=== PATIENT | male | born 1970 | race African-American/Black ===

== ENCOUNTER 2016-11-21 23:00 | Inpatient (IN) | payer BC ==
--- NOTE | ~2016-11-21 | HP ---
Unit #: [id number] #: [id number] Patient: COLLIN MALDONADO [id number] [facility] [address] [place] [address] [id number] MR#: [id number] NAME: COLLIN MALDONADO ROOM: P179 Age: 45 Sex: M Admission Date: 11/22/2016 : 1970 Attending Physician: Jose Pineda M.D. Admitting Physician: Jose Pineda M.D. Primary Care Physician: Primary Care Physician No HISTORY AND PHYSICAL HISTORY OF PRESENT ILLNESS Collin is a 45 year old admitted to [facility] because of his abuse of alcohol and heroin. PAST MEDICAL HISTORY 1. Long history of illicit substance abuse to include heroin, methamphetamine and spice. 2. Degenerative disc disease. 3. GERD. PAST SURGICAL HISTORY Nothing reported. ALLERGIES Penicillin. SOCIAL HISTORY Smokes 1 pack per day. Drinks a case of beer every 2 days and admits to regular use of cocaine with prior history of other illicit substance abuse. FAMILY HISTORY Medically noncontributory. REVIEW OF SYSTEMS CONSTITUTIONAL: No fever or chills. HEENT: Denies any sore throat, ear pain or runny nose. CARDIOVASCULAR: Denies chest pain, irregular heart rhythm or palpitations. CHEST: Denies shortness of breath or cough. No hemoptysis. GASTROINTESTINAL: Denies nausea, vomiting, diarrhea or chronic constipation. ENDOCRINE: Denies history of increased thirst or urination. No recent significant weight loss or gain. GENITOURINARY: Denies dysuria, frequency, or hematuria. SKIN: Denies any rashes. HEMATOLOGIC: Denies history of increased bleeding or bruising. MUSCULOSKELETAL: Denies any hot, swollen joints. No generalized muscle pain. NEUROLOGIC: Denies problems with vision or speech. No frequent, severe headaches. No numbness, tingling or weakness in any extremities. Denies loss of bladder or bowel control. CURRENT MEDICATIONS 1. Detox protocol. Unit #: [id number] #: [id number] Patient: COLLIN MALDONADO 2. Protonix 40 mg daily. PHYSICAL EXAMINATION GENERAL: Alert, well-nourished, in no apparent distress. VITAL SIGNS: Blood pressure 100/68, heart rate 74, respirations 16, temperature 98.6. WEIGHT: 204. HEIGHT: 6 feet 0 inches. SKIN: Warm and dry without rash or lesion. HEENT: Normocephalic. TMs not viewed. Oral and nasal passages clear. Conjunctivae clear. PERRLA. EOMs intact. NECK: Supple without lymphadenopathy or thyromegaly. HEART: Regular rate and rhythm without murmur. LUNGS: Clear. ABDOMEN: Soft, nontender. : Not done. EXTREMITIES: No evidence of cyanosis, clubbing or edema. Moves all without focal deficit. NEUROLOGICAL: Grossly within normal limits. Cranial Nerves: II: Visual hanson are intact. III, IV AND : Extraocular movements are intact. Pupils are equal, round and reactive to light. V: Facial sensation is grossly normal. VII: Facial movements and expression are normal. VIII: Auditory acuity grossly intact. IX, X: Uvula is midline. Phonation is normal. XI: Patient shrugs shoulders and turns head normally. XII: Tongue protrudes in the midline. Sensory and Motor Function: Sensory and motor sensation is grossly normal. Motor: moves all extremities well. Coordination: Gait is normal. Deep Tendon Reflexes: Intact. IMPRESSION Psychiatric admission. RECOMMENDATIONS PSYCHIATRIC: Per psychiatrist. MEDICAL: See no contraindication to participate in facility's activities. MEDICAL PROGNOSIS Good. MEDICAL CONDITION Stable. Dictated by... Gladis Jeffers PNorisANoris-Jyotsna. for Agatha Dallas/zackary TD: 11/22/2016 21:52 JOB #: [id number] Unit #: [id number] #: [id number] Patient: COLLIN MALDONADO HISTORY AND PHYSICAL Page 1 of 1 X Gladis Jeffers HISTORY AND PHYSICAL
--- NOTE | ~2016-11-21 | PA ---
Unit #: [id number] #: [id number] Patient: AMERICA MALDONADO [id number] [facility] [place] [address] [id number] MR#: [id number] NAME: AMERICA MALDONADO. ROOM: P179 Age: 45 Sex: M Admission Date: 11/22/2016 : 1970 Date of Assessment: 11/22/2016 Attending Physician: Jose Pineda M.D. Admitting Physician: Jose Pineda M.D. Primary Care Physician: Primary Care Physician No PSYCHIATRIC ASSESSMENT IDENTIFYING INFORMATION The patient is a 45-year-old male admitted to the [facility] Unit with increasing depression, suicidal ideation, and abuse of alcohol and heroin. CHIEF COMPLAINT None given. INFORMANT(S) Patient, reliability is good. HISTORY OF PRESENT ILLNESS The patient is a 45-year-old male with an extensive polysubstance use history. He reports that because of his substance use he has lost custody of his children ages 3 and 5. The patient report that he has been at [facility] and several other agencies in the past. The patient is reporting positive suicidal ideation at the time of admission. He complains of poor sleep and loss of appetite. The patient reports no previous inpatient treatment and has never been on antidepressant medication. He states he prefers not to take any antidepressant medication. 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 The patient reports abuse of methamphetamine and spice also. He is currently endorsing hopelessness but no suicidal ideation. PAST PSYCHIATRIC HISTORY As above. PAST MEDICAL HISTORY Significant for history of GERD and chronic neck pain. MEDICATIONS Neurontin, Prilosec. ALLERGIES None reported. FAMILY HISTORY The patient reports an extensive family history of substance use. SOCIAL HISTORY The patient completed 4 years of trade school and is a lay out carpenter. He has children ages 3 and 5 who are currently in the custody of relatives in [place], [place]. He reports substance use as noted Unit #: [id number] #: [id number] Patient: AMERICA MALDONADO previously and is a smoker. MENTAL STATUS EXAMINATION Examination at this time reveals the patient to be a well-developed well-nourished male appearing his stated age. He is in no apparent physical distress at the time of examination. He is awake, alert, and oriented in all spheres. His mood is mildly dysphoric, his affect constricted. Speech is generally well-coherent. There are no gross deficits in memory or cognition noted. Intelligence is judged to be in the average range based on fund of knowledge. The patient is cooperative throughout the interview. He is currently endorsing positive suicidal ideation. He denies homicidal ideation. He denies any psychotic symptoms. His judgment and insight appear to be intact. ASSETS AND LIABILITIES The patient's assets: Motivation for change. Liabilities: Lack of resources. DIAGNOSTIC IMPRESSION 1. Alcohol use disorder. 2. Methamphetamine use disorder. 3. Hallucinogen use disorder. 4. Opioid use disorder. 5. Chronic neck pain. 6. Gastroesophageal reflux disease. TREATMENT PLAN The patient remains hospitalized for safety and stabilization. We will restart previously prescribed gabapentin and Prilosec. Routine detoxification protocol for alcohol has been initiated. The patient will participate in appropriate order of milieu activities. She at this point uses not to wish to initiate any antidepressant medication, and this wish will of course be ordered. ESTIMATED LENGTH OF STAY 5 to 7 days. The followup will take place through the intensive outpatient program provided by this facility. Dictated by... Jose Pineda M.D. CB/germania TD: 11/22/2016 14:50 JOB #: [id number] Unit #: [id number] #: [id number] Patient: AMERICA MALDONADO PSYCHIATRIC ASSESSMENT Page 1 of 1 X Jose Pineda MD PSYCHIATRIC ASSESSMENT
--- NOTE | ~2016-11-21 | PN ---
Unit #: [id number] #: [id number] Patient: AMERICA MALDONADO [id number] [facility] [address] [place] [address] [id number] MR#: [id number] NAME: AMERICA MALDONADO ROOM: P179 Age: 45 Sex: M Admission Date: 11/22/2016 : 1970 Attending Physician: Jose Pineda M.D. Admitting Physician: Jose Pineda M.D. Primary Care Physician: Primary Care Physician Jessica LECHUGA PROGRESS NOTES DATE 11/23/2016 DISCUSSION The patient is resting comfortably today. Staff reports no management issues, and the patient's opioid detox continues uneventfully. Dictated by... Jose Pineda M.D. CB/germania TD: 11/23/2016 15:12 JOB #: [id number] ALEXANDREA PROGRESS NOTES Page 1 of 1 X Jose Pineda MD X PROGRESS NOTE
--- NOTE | ~2016-11-21 | DS ---
Unit #: [id number] #: [id number] Patient: AMERICA MALDONADO [id number] [facility] [address] [place] [address] [id number] MR#: [id number] NAME: AMERICA MALDONADO. ROOM: 79 Age: 45 Sex: M Admission Date: 11/22/2016 : 1970 Discharge Date: 11/24/2016 Attending Physician: Jose Pineda M.D. Primary Care Physician: Primary Care Physician No DISCHARGE SUMMARY REASON FOR ADMISSION The patient is a 45-year-old male, admitted to the [facility] unit with a history of opioid use disorder. HOSPITAL COURSE The patient was admitted to the [address] [place] [address] unit and placed on routine detoxification protocol to cover both opioids and alcohol and heroin. The patient's stay in the hospital was a brief and uneventful one. He participated actively and exhibited little in the way of signs or symptoms of withdrawal. By 11/24/2016, the patient was agreeable to plan for followup in the intensive outpatient program and as per his request, discharge was ordered. FINAL DIAGNOSES Alcohol use disorder; cocaine use disorder; methamphetamine use disorder; opioid use disorder. DISPOSITION ON DISCHARGE The patient is discharged on the following medications: Protonix 30 mg daily for GERD and Neurontin 800 mg q.i.d. for chronic pain. DISCHARGE INSTRUCTIONS No dietary or physical restrictions were placed on the patient at the time of discharge. FOLLOWUP Followup will take place through the auspices of the chemical dependency intensive outpatient program provided by this facility. PROGNOSIS The patient's prognosis is considered good. Dictated by... Jose Pineda M.D. CB/michael TD: 11/24/2016 15:01 JOB #: [id number] Unit #: [id number] #: [id number] Patient: AMERICA MALDONADO DISCHARGE SUMMARY Page 1 of 1 X Jose Pineda MD X DISCHARGE SUMMARY
[~2016-11-21 23:00] MED LIST: BENZONATATE PO; NEURONTIN100 MG PO; VOLTAREN75 MG PO
[2016-11-23 12:31] LABS: BASOPHIL% 0.4 % (0-2.5); EOSINOPHIL# 0.3 X10e3 (0-0.7); EOSINOPHIL% 3.4 % (0.0-7.0); HEMATOCRIT 42.8 % (38.0-50.0); HEMOGLOBIN 13.9 gm/dL (13.0-16.0); LYMPHOCYTE# 2.6 X10e3 (1.0-3.5); LYMPHOCYTE% 32.6 % (17.0-45.0); MEAN CELL VOLUME 89.3 FL (83-96); MEAN CORPUSCULAR HGB CONC 32.5 g/dL (30-36); MEAN PLATELET VOLUME 9.9 FL (6.5-11.5); MONOCYTE# 0.6 X10e3 (0-1.0); NEUTROPHIL# 4.5 X10e3 (1.5-7.1); NEUTROPHIL% 56.6 % (40-75); PLATELET COUNT 188 X10e3 (140-420); RED BLOOD COUNT 4.79 X10e (3.90-5.60); RED CELL DISTRIBUTION WIDTH 13.6 % (11.0-15.5)
[2016-11-23 12:39] LABS: URINE APPEARANCE CLEAR; URINE BILIRUBIN NEG (NEG); URINE BLOOD NEG (NEG); URINE COLOR DK YELLOW; URINE GLUCOSE NEG (NEG); URINE KETONE NEG (NEG); URINE LEUKOCYTE ESTERASE NEG (NEG); URINE NITRATE NEG (NEG); URINE PROTEIN NEG (NEG); URINE SPECIFIC GRAVITY 1.011 (1.003-1.035); URINE UROBILINOGEN 0.2 MG/DL (NEG)
[2016-11-23 12:42] LABS: DIFF IND NO
[2016-11-23 12:45] LABS: ALBUMIN SERUM 3.6 g/dL (3.5-5.0); BILIRUBIN,TOTAL 0.5 mg/dL (0.2-2.0); BUN/CREATININE RATIO 12.22; CALCIUM SERUM 9.1 mg/dL (8.4-10.2); CREATININE SERUM 0.9 mg/dL (0.6-1.4); GLOM FILT RATE Estimated 118.3 mL/min (>60); POTASSIUM 3.9 mmol/L (3.5-5.1); PROTEIN TOTAL SERUM 6.1 g/dL (6.0-8.3)
[2016-11-23 13:04] LABS: AMPHETAMINE NEG (NEG); BARBITURATES NEG (NEG); BENZODIAZEPINES NEG (NEG); COCAINE POS (NEG); MARIJUANA NEG (NEG); OPIATES NEG (NEG); TRICYCLIC ANTIDEPRESSANTS NEG (NEG); U METHADONE NEG (NEG)
[2016-11-27 15:48] LABS: HA AB IGM (HEPPAN) Nonreactive (()); HB CORE AB IGM (HEPPAN) Nonreactive (Nonreactive); HB S AG (HEPPAN) Nonreactive (Nonreactive); HEP C AB (HEPPAN) Nonreactive (Nonreactive); HEP C AB SIGNAL TO CUTOFF 0.05 ratio (<1.00)
== END 2016-11-24 16:16 | DRG 897 ==
LOC: P1E 11-22 02:59
PROVIDERS: Specialist
PROC: HZ2ZZZZ Detoxification Services for Substance Abuse Treatment (ICD-10-PCS; principal; 2016-11-22)
DX: F10.10 Alcohol abuse, uncomplicated (principal); F11.10 Opioid abuse, uncomplicated; F14.10 Cocaine abuse, uncomplicated; K21.9 Gastro-esophageal reflux disease without esophagitis; M54.2 Cervicalgia; G89.29 Other chronic pain; F15.10 Other stimulant abuse, uncomplicated
CPT/HCPCS: 80053; 80074; 80307; 81003; 85025; 86592; 87806